=== PATIENT | male | born 1985 | race Caucasian/White ===

== ENCOUNTER 2021-01-12 23:26 | Emergency (ER) | payer MEDICAID ==
[2021-01-13] MEDS ORDERED: Ketorolac 30 MG/ML SDV IM ONE (00:01)
--- NOTE | 2021-01-13 00:03 | EDM.PDOC ---
ED HPI GENERAL MEDICAL PROBLEM - General Chief Complaint: Abdominal Pain Stated Complaint: ABD PAIN/FAINTED Time Seen by Provider: 01/12/21 23:59 Source of Information: Reports: Patient, Family, RN Notes Reviewed History Limitations: Reports: No Limitations - History of Present Illness INITIAL COMMENTS - FREE TEXT/NARRATIVE: 35-year-old gentleman presents emergency department day complaint of right flank pain he states of sudden onset starts in his low back radiates down around to the front into the groin does have some dysuria pain will wax and wane Right Flank Pain Score (Numeric/FACES): 3 - Related Data Allergies Allergy/AdvReac Type Severity Reaction Status Date / Time No Known Allergies Allergy Verified 01/12/21 23:40 Home Meds: Home Meds NK [No Known Home Meds] 02/07/14 [History] Past Medical History HEENT History: Reports: Impaired Vision - Infectious Disease History Infectious Disease History: Reports: Chicken Pox, Mononucleosis Social & Family History - Tobacco Use Tobacco Use Status *Q: Current Every Day Tobacco User Years of Tobacco use: 18 Packs/Tins Daily: 1 - Caffeine Use Caffeine Use: Reports: Soda - Recreational Drug Use Recreational Drug Use: Yes Recreational Drug Type: Reports: Marijuana/Hashish Recreational Drug Use Frequency: Socially ED ROS GENERAL - Review of Systems Review Of Systems: See Below Constitutional: Reports: No Symptoms Respiratory: Reports: No Symptoms Cardiovascular: Reports: No Symptoms GI/Abdominal: Reports: Abdominal Pain. Denies: Nausea, Vomiting : Reports: Dysuria, Flank Pain ED EXAM, GI/ABD - Physical Exam Exam: See Below Exam Limited By: No Limitations General Appearance: Alert, Mild Distress Respiratory/Chest: No Respiratory Distress, Lungs Clear, Normal Breath Sounds, No Accessory Muscle Use, Chest Non-Tender Cardiovascular: Regular Rate, Rhythm, No Murmur GI/Abdominal Exam: Soft, Tender Back Exam: Normal Inspection, Full Range of Motion, CVA Tenderness (R). No: CVA Tenderness (L) Course - Vital Signs Last Recorded V/S: Last Vital Signs Temp 97.7 F 01/12/21 23:37 Pulse 60 01/12/21 23:37 Resp 16 01/12/21 23:37 BP 124/74 01/12/21 23:37 Pulse Ox 100 01/12/21 23:37 - Orders/Labs/Meds Labs: Laboratory Tests 01/13/21 Range/Units 00:03 Urine Color Yellow (YELLOW) Urine Appearance Turbid A (CLEAR) Urine pH 8.5 H (5.0-8.0) Ur Specific [place] 1.015 (1.008-1.030) Urine Protein 30 H (NEGATIVE) mg/dL Urine Glucose (UA) Negative (NEGATIVE) mg/dL Urine Ketones Negative (NEGATIVE) mg/dL Urine Occult Blood Moderate H (NEGATIVE) Urine Nitrite Negative (NEGATIVE) Urine Bilirubin Negative (NEGATIVE) Urine Urobilinogen 0.2 (0.2-1.0) EU/dL Ur Leukocyte Esterase Negative (NEGATIVE) Urine RBC 10-20 H (0-5) Urine WBC 0-5 (0-5) Ur Epithelial Cells Not seen Amorphous Sediment Packed Urine Bacteria Occasional Urine Mucus Occasional Meds: Medications Discontinued Medications Generic Name Dose Route Start Last Admin Trade Name Freq PRN Reason Stop Dose Admin Ketorolac Tromethamine 30 mg 01/13/21 00:01 01/13/21 00:11 Ketorolac 30 Mg/Ml Sdv IM 01/13/21 00:02 30 mg ONETIME ONE Administration Departure - Departure Time of Disposition: 01:13 Disposition: Home, Self-Care 01 Condition: Fair Clinical Impression: Nephrolithiasis - Discharge Information Instructions: Kidney Stones, [id number] Referrals: PCP,None [Primary Care Provider] - Forms: ED Department Discharge Additional Instructions: Continue to use the ketorolac as needed for pain control, please followup with your primary care provider in 3-5 days if not better, please call return to the emergency department with worsening of symptoms. Sepsis Event Note (ED) - Evaluation Sepsis Screening Result: No Definite Risk - Focused Exam Vital Signs: Vital Signs Temp Pulse Resp BP Pulse Ox 01/12/21 23:37 97.7 F 60 16 124/74 100 - Assessment/Plan Plan: Assessment Acuity = acute Site and laterality = 2 mm nephrolithiasis right side Etiology = unknown Manifestations = none Location of injury = Home Lab values = urinalysis does show hematuria CT scan describes stone above Plan Good improvement with Toradol prescription written for Toradol 10 mg one tab p.o. 3 times daily as needed total #20 follow-up with primary care in 3 to 5 days if not better This note was dictated using [employer] voice recognition software please call with any questions on syntax or grammar.
--- NOTE | 2021-01-13 00:50 | CRLCT ---
For Patients: As a result of the Century Cures Act, medical imaging exams and procedure reports are released immediately into your electronic medical record. You may view this report before your referring provider. If you have questions, please contact your health care provider. INDICATION: Right flank pain TECHNIQUE: Axial images were obtained from the diaphragm to the pubic symphysis. Reformats were obtained in the coronal and sagittal plane. IV Contrast: None Oral Contrast: None COMPARISON: None. FINDINGS: Lower chest: Unremarkable. Liver: Unremarkable. Normal in size and attenuation. No masses. Gallbladder and bile ducts: Unremarkable. No stones or inflammation. No biliary dilatation. Spleen: Multiple calcifications within the spleen. Pancreas: Unremarkable. No mass or inflammation. Adrenal glands: Unremarkable. No nodules. Kidneys: Nephrolithiasis with mild right hydronephrosis. Obstructing 2 millimeter stone at the right ureterovesicular junction. Vasculature: Unremarkable. GI tract: Moderate distention of the stomach with diffuse fluid. No dilated loops of large or small intestine. Appendix unremarkable. Pelvis: Unremarkable. Bones: Unremarkable for age. IMPRESSION: 1. Nephrolithiasis with mild right hydronephrosis and obstructing 2 millimeter stone at the right ureterovesicular junction. 2. Old granulomatous disease. Please note that all CT scans at this facility use dose modulation, iterative reconstruction, and/or weight-based dosing when appropriate to reduce radiation dose to as low as reasonably achievable. Dictated by Kishan Trimble MD @ 01/13/2021 12:49:[address] Kishan Trimble @ Jan 13 2021 12:49AM
== END 2021-01-13 01:23 | disposition home or self-care (01) ==
LOC: JP.ED 23:26
DX: N13.2 Hydronephrosis with renal and ureteral calculous obstruction (principal); Z72.0 Tobacco use
CPT/HCPCS: 74176; 81001; 96372; 99284; J1885

== ENCOUNTER 2024-02-11 11:03 | Emergency (ER) | payer MEDICAID ==
[2024-02-11] MEDS: Lidocaine/Epineph/Tetracaine 3 ML Syringe TOP ONE (11:20)
[2024-02-11] MEDS: Bacitracin Oint 1 GM U/D Packet TOP ONE (11:52)
[2024-02-11] MEDS: Diphtheria,Pertussis(Acell),Tetanus Vaccine 0.5 ML Syringe IM ONE (11:52)
[2024-02-11] MEDS: Lidocaine 1% 10 ML MDV INJECT ONE (11:52)
== END 2024-02-11 12:54 | disposition home or self-care (01) ==
LOC: JP.ED 11:03
DX: S61.213A Laceration without foreign body of left middle finger without damage to nail, initial encounter (principal); Z23 Encounter for immunization; W25.XXXA Contact with sharp glass, initial encounter
CPT/HCPCS: 12001; 90471; 90715; 99283; A9270